=== PATIENT | male | born 1990 | race American Indian/Alaskan Native ===

== ENCOUNTER 2018-09-14 21:17 | Emergency (ER) | payer OTHER ==
[2018-09-14] MEDS ORDERED: GEODON IM ONE ×2 (21:54→21:56)
[2018-09-14] MEDS ORDERED: WATER FOR INJ Sterile (PF) 10 ML ONE (21:57)
[2018-09-14] MEDS ORDERED: ATIVAN ONE (22:11)
[2018-09-14] MEDS ORDERED: ATIVAN IM ONE (22:14)
--- NOTE | 2018-09-14 23:10 | Emergency Department Report ---
ED Psych HPI - General Chief Complaint: Altered Mental Status Stated Complaint: MED CLEARANCE Time Seen by Provider: 09/14/18 21:48 Source: patient, EMS Mode of arrival: Stretcher - History of Present Illness Initial Comments: Mr. Quarles is a patient of [facility] who is being treated for acute psychosis. REcently transferred from [place], [place]. Had reported hypokalemia. Transferred for potassium check. Patient is agitated, combative in 4 point restrints. Will not provide history. MD Complaint: altered mental status -: unknown Associated Psychiatric Symptoms: other (combative and aggressive behavior) - Related Data Allergies Allergy/AdvReac Type Severity Reaction Status Date / Time aspirin Allergy Unknown Verified 09/14/18 21:38 Fish Containing Products Allergy Unknown Verified 09/14/18 21:39 fish derived Allergy Unknown Verified 09/14/18 21:39 milk Allergy Unknown Verified 09/14/18 21:39 ED Review of Systems ROS: Stated complaint: MED CLEARANCE Other details as noted in HPI Comment: Unobtainable due to pts medical conditions ED Past Medical Hx - Past Medical History Previous Medical History?: Yes Hx Psychiatric Treatment: Yes - Surgical History Past Surgical History?: No - Social History Smoking Status: Current Every Day Smoker Substance Use Type: None ED Physical Exam - General Limitations: Altered Mental Status General appearance: alert, other (agitated, combative, 4 point restraints) - Head Head exam: Present: atraumatic, normocephalic - Eye Eye exam: Present: normal appearance. Absent: scleral icterus, conjunctival injection - ENT ENT exam: Present: mucous membranes moist - Respiratory Respiratory exam: Absent: respiratory distress - Cardiovascular Cardiovascular Exam: Absent: systolic murmur, diastolic murmur, rubs, gallop - GI/Abdominal GI/Abdominal exam: Present: soft, distended, normal bowel sounds - Rectal Rectal exam: Present: deferred - Extremities Exam Extremities exam: Present: normal inspection - Neurological Exam Neurological exam: Present: alert - Psychiatric Psychiatric exam: Present: agitated - Skin Skin exam: Present: warm, dry, intact, normal color. Absent: rash ED Course Vital Signs 09/14/18 22:44 Pulse Rate 135 H Respiratory 22 Rate O2 Sat by Pulse 96 Oximetry ED Medical Decision Making - Lab Data Result diagrams: 09/14/18 22:35 Laboratory Results - last 24 hr 09/14/18 22:35 Potassium 4.1 - Medical Decision Making Mr. Quarles presents with acute psychosis. Currently patient of [facility] Repeat potassium 4.1. Transferred back to [facility]. Critical care attestation.: If time is entered above; I have spent that time in minutes in the direct care of this critically ill patient, excluding procedure time. ED Disposition Clinical Impression: Acute psychosis, History of hypokalemia Disposition: [id number] PSY HOSP/PSY UNIT Is pt being admited?: No Does the pt Need Aspirin: No Condition: Stable Additional Instructions: Current potassium level 4.1 mmol/L
== END 2018-09-15 00:37 ==
LOC: ED 21:17
DX: F23 Brief psychotic disorder (principal); E87.6 Hypokalemia; F17.200 Nicotine dependence, unspecified, uncomplicated; Z91.013 Allergy to seafood; Z91.011 Allergy to milk products; Z88.6 Allergy status to analgesic agent
CPT/HCPCS: 36415; 84132; 96372; 99284; J2060; J3486